=== PATIENT | female | born 1955 | race Caucasian/White ===

== ENCOUNTER 2023-11-08 08:44 | Inpatient (IN) | payer MEDICARE, MEDICAID ==
[~2023-11-08] VITALS: Ht 167.6 cm; Wt 32.6 kg
[2023-11-08 10:05] LABS: Basophils # (auto) 0 10 ^3/uL (0-0.2); Basophils % (auto) 0.2 % (0.0-2.0); Eosinophils # (auto) 0.1 10 ^3/uL (0-0.8); Eosinophils % (auto) 0.3 % (0.0-7.0); Hemoglobin 14.4 g/dL (12.2-16.2); Lymphocytes # (auto) 1.4 10 ^3/uL (0.4-5.4); Lymphocytes % (auto) 8.5 % (10.0-50.0); Mean Corpuscular Hemoglobin 31.4 pg (28.0-32.0); Mean Corpuscular Hgb Conc. 32.8 g/dL (32.0-36.0); Mean Corpuscular Volume 95.8 fL (80.0-100.0); Monocytes # (auto) 1.3 10 ^3/uL (0-1.3); Monocytes % (auto) 8.2 % (0.0-12.0); Neutrophils # (auto) 13.3 10 ^3/uL (1.6-8.6); Neutrophils % (auto) 82.8 % (37.0-80.0); Red Blood Cells 4.59 10^6/uL (4.0-5.20); Red Cell Distribution Width 15.6 % (11.8-14.3); White Blood Cell 16.1 10^3/uL (4.4-10.8)
[2023-11-08 10:19] LABS: Alanine Aminotransferase 35 U/L (7-40); Albumin 4.2 g/dL (3.2-4.8); Alkaline Phosphatase 78 U/L (46-116); Anion Gap 8 (5-15); Aspartate Aminotransferase 31 U/L (13-40); BUN/Creatinine Ratio 17.6 (10.0-20.0); Blood Urea Nitrogen 13 mg/dL (9-23); Calcium 10.2 mg/dL (8.5-10.1); Carbon Dioxide 26 mmol/L (20-30); Chloride 104 mmol/L (98-107); Glucose 132 mg/dL (74-106); Potassium 3.7 mmol/L (3.5-5.1); Sodium 138 mmol/L (136-145)
[2023-11-08 10:20] LABS: Bilirubin, Total 2.7 mg/dL (0.2-1.0); Total Protein 6.8 g/dL (5.7-8.2)
[2023-11-08] MEDS: PIPERACILLIN-TAZO 4.5GM 100 ML IV ONE (10:45)
[2023-11-08 10:52] LABS: Free T3 2.62 pg/mL (2.3-4.2)
[2023-11-08 10:56] LABS: Free T4 (Free Thyroxine) 1.89 ng/dL (0.89-1.76)
[2023-11-08] MEDS ORDERED: TORS20TA19 PO (11:34)
[2023-11-08] MEDS ORDERED: ALBU108A5 INH (11:34)
[2023-11-08] MEDS ORDERED: BACL10TA PO (11:34)
[2023-11-08] MEDS ORDERED: PARO10TA93 PO (11:34)
[2023-11-08] MEDS ORDERED: HYDR-4069 PO (11:34)
[2023-11-08] MEDS ORDERED: BENA40TA70 PO (11:34)
[2023-11-08] MEDS ORDERED: MAGN241.4 PO (11:34)
[2023-11-08] MEDS ORDERED: OMEP1CAP70 PO (11:34)
[2023-11-08] MEDS ORDERED: ASPI-325 PO (11:34)
[2023-11-08] MEDS ORDERED: GABA-1251 PO (11:34)
[2023-11-08] MEDS ORDERED: ALBU0.084 NEB (11:34)
[2023-11-08] MEDS ORDERED: PROM25TA10 PO (11:34)
[2023-11-08] MEDS ORDERED: APIX5TAB PO (11:34)
[2023-11-08] MEDS ORDERED: LEVO150T10 PO (11:34)
[2023-11-08] MEDS ORDERED: LACT10SO3 PO (11:34)
[2023-11-08 11:42] VITALS: PULSE 108; RESP 18; O2SAT 97
[2023-11-08 11:56] LABS: Triglycerides 70 mg/dL (< 150)
[2023-11-08 11:57] LABS: LDL Cholesterol 82 mg/dL (< 100)
[2023-11-08 11:58] LABS: Cholesterol 150 mg/dL (< 200); HDL Cholesterol 51 mg/dL (40-59)
[2023-11-08] MEDS: VANCOMYCIN 1GM/200ML 200 ML IV ONE (12:07)
[2023-11-08] MEDS: LACTULOSE 20Gm/30ML SOLN PO ONE (12:07)
[2023-11-08] MEDS: SODIUM CHLORIDE 0.9% 1,000 ML IV ONE (12:08)
[2023-11-08] MEDS: SODIUM CHLORIDE 0.9% 1,000 ML IV SCH (12:09)
[2023-11-08 12:12] LABS: Urine Bacteria NONE SEEN /hpf (None Seen); Urine Blood TRACE /uL (Negative); Urine Clarity Clear (Clear); Urine Color Yellow (Yellow); Urine Protein, UAD Negative (Negative); Urine Specific Gravity 1.016 (1.001-1.035); Urine Urobilinogen Normal (Negative); Urine WBC 1 /hpf (0 - 5); Urine pH 5.5 (5.0-8.0)
[2023-11-08] MEDS ORDERED: LEVOTHYROXINE SODIUM 50 MCG TAB PO SCH (13:00)
[2023-11-08 13:30] LABS: Basophils # (auto) 0 10 ^3/uL (0-0.2); Basophils % (auto) 0.1 % (0.0-2.0); Eosinophils # (auto) 0.1 10 ^3/uL (0-0.8); Eosinophils % (auto) 0.7 % (0.0-7.0); Hematocrit 41.5 % (36.0-46.0); Hemoglobin 13.6 g/dL (12.2-16.2); Lymphocytes # (auto) 1.6 10 ^3/uL (0.4-5.4); Lymphocytes % (auto) 10.7 % (10.0-50.0); Mean Corpuscular Hemoglobin 31.5 pg (28.0-32.0); Mean Corpuscular Hgb Conc. 32.9 g/dL (32.0-36.0); Mean Corpuscular Volume 95.7 fL (80.0-100.0); Monocytes # (auto) 1.3 10 ^3/uL (0-1.3); Neutrophils # (auto) 11.6 10 ^3/uL (1.6-8.6); Neutrophils % (auto) 79.5 % (37.0-80.0); Nucleated Red Blood Cells % 0.1 %; Red Blood Cells 4.34 10^6/uL (4.0-5.20); Red Cell Distribution Width 15.2 % (11.8-14.3); White Blood Cell 14.6 10^3/uL (4.4-10.8)
[2023-11-08 13:35] VITALS: O2SAT 94
[2023-11-08] MEDS ORDERED: ALBUTEROL SULF 2.5 MG/0.5ML(0.5%) NEB SOLN NEB PRN (13:45)
[2023-11-08 13:50] VITALS: BP 136/82; PULSE 79; RESP 16; O2SAT 94
[2023-11-08] MEDS: GABAPENTIN 400 MG CAP PO SCH (14:00)
[2023-11-08] MEDS: ACETAMINOPHEN 325 MG TAB PO PRN (14:32)
[2023-11-08] MEDS ORDERED: VANCOMYCIN PER PHARMACY 0 MG IV SCH (16:30)
[2023-11-08] MEDS: PIPERACILLIN-TAZOB 3.375GM 100 ML IV SCH (18:00)
[2023-11-08 19:45] VITALS: PULSE 99; RESP 17; O2SAT 94
[2023-11-08] MEDS: APIXABAN 5 MG TAB PO SCH (22:27)
[2023-11-08] MEDS: BACLOFEN 10 MG TAB PO SCH (22:27)
[2023-11-09] VITALS (12 sets, daily range): BP systolic 122–171; BP diastolic 53–77; PULSE 61–98; RESP 17–20; TEMP 98–98.7; O2SAT 91–98
[2023-11-09] MEDS: HYDROcodone-ACET 5/325MG TAB PO PRN (00:01)
[2023-11-09] MEDS: LACTULOSE 20Gm/30ML SOLN PO PRN (00:01)
[2023-11-09] MEDS: VANCOMYCIN 1GM/200ML 200 ML IV SCH (04:00)
[2023-11-09 05:21] LABS: Basophils # (auto) 0 10 ^3/uL (0-0.2); Basophils % (auto) 0.4 % (0.0-2.0); Eosinophils # (auto) 0.5 10 ^3/uL (0-0.8); Eosinophils % (auto) 4.8 % (0.0-7.0); Hemoglobin 13.6 g/dL (12.2-16.2); Lymphocytes # (auto) 1.7 10 ^3/uL (0.4-5.4); Lymphocytes % (auto) 16.5 % (10.0-50.0); Mean Corpuscular Hemoglobin 31.7 pg (28.0-32.0); Mean Corpuscular Volume 95.9 fL (80.0-100.0); Monocytes # (auto) 0.9 10 ^3/uL (0-1.3); Monocytes % (auto) 8.3 % (0.0-12.0); Neutrophils # (auto) 7.4 10 ^3/uL (1.6-8.6); Red Blood Cells 4.28 10^6/uL (4.0-5.20); Red Cell Distribution Width 15.5 % (11.8-14.3); White Blood Cell 10.6 10^3/uL (4.4-10.8)
[2023-11-09 05:50] LABS: Alanine Aminotransferase 32 U/L (7-40); Albumin 3.6 g/dL (3.2-4.8); Alkaline Phosphatase 73 U/L (46-116); Anion Gap 7 (5-15); Aspartate Aminotransferase 45 U/L (13-40); BUN/Creatinine Ratio 11.1 (10.0-20.0); Bilirubin, Total 1.6 mg/dL (0.2-1.0); Blood Urea Nitrogen 8 mg/dL (9-23); Calcium 9.4 mg/dL (8.5-10.1); Carbon Dioxide 25 mmol/L (20-30); Chloride 107 mmol/L (98-107); Glucose 92 mg/dL (74-106); Potassium 3.8 mmol/L (3.5-5.1); Sodium 139 mmol/L (136-145); Total Protein 6.3 g/dL (5.7-8.2)
[2023-11-09] MEDS: LEVOTHYROXINE SODIUM 25 MCG TAB PO SCH (06:40)
[2023-11-09] MEDS: LEVOTHYROXINE SODIUM 112 MCG TAB PO SCH (06:40)
[2023-11-09] MEDS: FLEET ENEMA(ADULT) 135 ML PR ONE (08:15)
[2023-11-09] MEDS ORDERED: VANCOMYCIN 1GM/200ML 200 ML IV SCH (09:45)
[2023-11-09] MEDS ORDERED: PATIENTS OWN MEDICATION (Paroxetine Hydrochloride 1 TAB) PO SCH (10:00)
[2023-11-09] MEDS ORDERED: PATIENTS OWN MEDICATION (Magnesium Oxide (Mag-Ox) 1 TAB) PO SCH (10:00)
[2023-11-09] MEDS ORDERED: ENOXAPARIN SOD 40 MG/0.4 ML SYRINGE SC SCH (10:00)
[2023-11-09] MEDS ORDERED: LEVOTHYROXINE SODIUM 50 MCG TAB PO SCH (10:00)
[2023-11-09] MEDS ORDERED: PATIENTS OWN MEDICATION (Levothyroxine Sodium 1 TAB) PO SCH (10:00)
[2023-11-09] MEDS ORDERED: PATIENTS OWN MEDICATION (Benazepril Hcl 1 TAB) PO SCH (10:00)
[2023-11-09] MEDS ORDERED: OMEPRAZOLE 40MG/20ML ORAL SUSP PO SCH (10:00)
[2023-11-09] MEDS ORDERED: PRE1T PO (10:20)
[2023-11-09] MEDS: PARoxetine 20 MG TAB PO SCH (10:22)
[2023-11-09] MEDS: MAGNESIUM OXIDE 400 MG TAB PO SCH (10:23)
[2023-11-09] MEDS: ASPirin-EC 81 mg tab PO SCH (10:23)
[2023-11-09] MEDS: POLYETHYLENE GLYCOL 17 GM PWDR PO SCH (10:24)
[2023-11-09] MEDS: BENAZEPRIL HCL 10 MG TAB PO SCH (10:24)
[2023-11-09] MEDS: PANTOPRAZOLE 40 MG TAB PO SCH (10:29)
[2023-11-09] MEDS ORDERED: IPRAAER6 INH (15:02)
[2023-11-09] MEDS ORDERED: PRED20TA2 PO (15:02)
[2023-11-09] MEDS: POLYETHYLENE GLYCOL 17 GM PWDR PO ONE (15:40)
[2023-11-09] MEDS: METOCLOPRAMIDE HCL 5MG/ml INJ 2ml VIAL IV SCH (15:40)
[2023-11-09] MEDS: FLEET MINERAL OIL ENEMA 133 ML PR ONE (15:42)
[2023-11-09] MEDS: IPRATROPIUM BROM 0.5 MG/2.5ML INH SOL NEB SCH (18:41)
[2023-11-09] MEDS: ALBUTEROL SULF 2.5 MG/0.5ML(0.5%) NEB SOLN NEB SCH (18:41)
[2023-11-09] MEDS: LACTULOSE 20Gm/30ML SOLN PO SCH (18:57)
[2023-11-09] MEDS: APIXABAN 5 MG TAB PO SCH (21:41)
[2023-11-10] VITALS (12 sets, daily range): BP systolic 132–156; BP diastolic 68–85; PULSE 86–101; RESP 18–22; TEMP 97.9–98.4; O2SAT 93–97
[2023-11-10] MEDS: VANCOMYCIN 1GM/200ML 200 ML IV SCH (00:12)
[2023-11-10] MEDS: HYDROcodone-ACET 10/325MG TAB PO PRN (21:20)
[2023-11-11] VITALS (12 sets, daily range): BP systolic 121–147; BP diastolic 53–108; PULSE 83–100; RESP 18–21; TEMP 97.6–98.6; O2SAT 92–98
[2023-11-11 06:29] LABS: Chloride 108 mmol/L (98-107); Potassium 3.9 mmol/L (3.5-5.1); Sodium 140 mmol/L (136-145)
[2023-11-11 06:30] LABS: Anion Gap 4 (5-15); Carbon Dioxide 28 mmol/L (20-30)
[2023-11-11 06:31] LABS: Calcium 9.3 mg/dL (8.5-10.1)
[2023-11-11 06:35] LABS: Basophils # (auto) 0.1 10 ^3/uL (0-0.2); Basophils % (auto) 0.8 % (0.0-2.0); Eosinophils # (auto) 0.3 10 ^3/uL (0-0.8); Eosinophils % (auto) 3.3 % (0.0-7.0); Glucose 92 mg/dL (74-106); Hematocrit 39.4 % (36.0-46.0); Lymphocytes # (auto) 1.2 10 ^3/uL (0.4-5.4); Lymphocytes % (auto) 14.5 % (10.0-50.0); Mean Corpuscular Hemoglobin 31.7 pg (28.0-32.0); Mean Corpuscular Hgb Conc. 33.1 g/dL (32.0-36.0); Mean Corpuscular Volume 95.6 fL (80.0-100.0); Monocytes # (auto) 0.9 10 ^3/uL (0-1.3); Monocytes % (auto) 10.8 % (0.0-12.0); Neutrophils # (auto) 5.6 10 ^3/uL (1.6-8.6); Neutrophils % (auto) 70.6 % (37.0-80.0); Nucleated Red Blood Cells % 0.1 %; Red Blood Cells 4.12 10^6/uL (4.0-5.20); Red Cell Distribution Width 15.2 % (11.8-14.3)
[2023-11-11 06:45] LABS: BUN/Creatinine Ratio 9.6 (10.0-20.0); Blood Urea Nitrogen < 5 mg/dL (9-23)
[2023-11-11] MEDS: VANCOMYCIN 1GM/200ML 200 ML IV SCH (22:29)
[2023-11-12] VITALS (8 sets, daily range): BP systolic 118–143; BP diastolic 45–68; PULSE 80–96; RESP 18–20; TEMP 97.7–98.6; O2SAT 94–100
[2023-11-12 05:36] LABS: Basophils # (auto) 0 10 ^3/uL (0-0.2); Basophils % (auto) 0.7 % (0.0-2.0); Eosinophils # (auto) 0.2 10 ^3/uL (0-0.8); Eosinophils % (auto) 3.4 % (0.0-7.0); Hematocrit 37.5 % (36.0-46.0); Hemoglobin 12.3 g/dL (12.2-16.2); Lymphocytes # (auto) 1.2 10 ^3/uL (0.4-5.4); Lymphocytes % (auto) 16.8 % (10.0-50.0); Mean Corpuscular Hemoglobin 31.2 pg (28.0-32.0); Mean Corpuscular Hgb Conc. 32.7 g/dL (32.0-36.0); Mean Corpuscular Volume 95.5 fL (80.0-100.0); Monocytes # (auto) 0.7 10 ^3/uL (0-1.3); Monocytes % (auto) 9.7 % (0.0-12.0); Neutrophils % (auto) 69.4 % (37.0-80.0); Nucleated Red Blood Cells % 0.1 %; Red Blood Cells 3.92 10^6/uL (4.0-5.20); Red Cell Distribution Width 15.3 % (11.8-14.3); White Blood Cell 7.2 10^3/uL (4.4-10.8)
[2023-11-12 06:00] LABS: Alanine Aminotransferase 104 U/L (7-40); Albumin 3.3 g/dL (3.2-4.8); Alkaline Phosphatase 133 U/L (46-116); Anion Gap 4 (5-15); Aspartate Aminotransferase 126 U/L (13-40); BUN/Creatinine Ratio 10.9 (10.0-20.0); Blood Urea Nitrogen 6 mg/dL (9-23); Calcium 9.2 mg/dL (8.5-10.1); Carbon Dioxide 30 mmol/L (20-30); Chloride 107 mmol/L (98-107); Glucose 96 mg/dL (74-106); Potassium 3.9 mmol/L (3.5-5.1); Sodium 141 mmol/L (136-145); Total Protein 5.5 g/dL (5.7-8.2)
[2023-11-12 06:08] LABS: CRP High Sensitivity 3.86 mg/dL (<1.0)
[2023-11-12] MEDS: DOXYCYCLINE 100 MG TAB/CAP PO SCH (21:15)
[2023-11-13] VITALS (11 sets, daily range): BP systolic 111–148; BP diastolic 49–85; PULSE 83–100; RESP 18–19; TEMP 97.9–98.7; O2SAT 94–98
[2023-11-13] MEDS: LIDOCAINE HCL 5 % TOP OINT 35 GM TOP PRN (00:39)
[2023-11-14] VITALS (8 sets, daily range): BP systolic 103–158; BP diastolic 32–72; PULSE 73–106; RESP 15–19; TEMP 97.7–98; O2SAT 94–98
[2023-11-14] MEDS ORDERED: LID35TP TOP (15:36)
[2023-11-15] VITALS (9 sets, daily range): BP systolic 107–139; BP diastolic 48–92; PULSE 79–112; RESP 18–20; TEMP 97.6–98.9; O2SAT 93–97
[2023-11-15] MEDS: POLYETHYLENE GLYCOL 17 GM PWDR PO PRN (15:45)
[2023-11-16] VITALS (8 sets, daily range): BP systolic 115–151; BP diastolic 50–94; PULSE 78–109; RESP 17–19; TEMP 97.8–98.1; O2SAT 90–97
[2023-11-16] MEDS ORDERED: MIDAZOLAM HCL 5 MG/ML-1ML VIAL ONE (14:13)
[2023-11-16] MEDS ORDERED: SODIUM CHLORIDE LOCK 10 ML ONE (14:13)
[2023-11-16] MEDS ORDERED: fentaNYL CITRATE 100 MCG/2 ML VL ONE ×2 (14:13→15:51)
[2023-11-16] MEDS ORDERED: diphenhdrAMINE HCL 50 MG/1 ML VL ONE (14:13)
[2023-11-16] MEDS ORDERED: MIDAZOLAM HCL 2MG/2ML 2ml VIAL (1mg/ml) ONE (15:51)
[2023-11-16] MEDS ORDERED: ONDANSETRON HCL 4 MG/2 ML VIAL IV PRN (16:00)
[2023-11-16] MEDS ORDERED: LABETALOL HCL 5 MG/ML 4ML SYRINGE IV PRN (16:00)
[2023-11-16] MEDS ORDERED: ePHEDrine SULFATE 50 MG/ML AMP IV PRN (16:00)
[2023-11-16] MEDS ORDERED: MIDAZOLAM HCL 2MG/2ML 2ml VIAL (1mg/ml) IV PRN (16:00)
[2023-11-16] MEDS ORDERED: MORPHINE SULFATE 4 MG/ML SYR/VIAL IV PRN (16:00)
[2023-11-16] MEDS ORDERED: PROPOFOL 10 MG/ML 20 ML IV ONE (16:14)
[2023-11-16] MEDS ORDERED: DexAMETHasone SOD PHOS 10MG/1ML VIAL INJ ONE (16:14)
[2023-11-17 05:00] VITALS: BP 142/70; PULSE 70; RESP 19; TEMP 97.6; O2SAT 94
[2023-11-17 05:02] LABS: Basophils # (auto) 0 10 ^3/uL (0-0.2); Basophils % (auto) 0.2 % (0.0-2.0); Eosinophils # (auto) 0 10 ^3/uL (0-0.8); Hematocrit 38.3 % (36.0-46.0); Hemoglobin 12.7 g/dL (12.2-16.2); Lymphocytes # (auto) 0.8 10 ^3/uL (0.4-5.4); Lymphocytes % (auto) 17.9 % (10.0-50.0); Mean Corpuscular Hemoglobin 31.4 pg (28.0-32.0); Mean Corpuscular Hgb Conc. 33.2 g/dL (32.0-36.0); Mean Corpuscular Volume 94.5 fL (80.0-100.0); Monocytes # (auto) 0.2 10 ^3/uL (0-1.3); Monocytes % (auto) 5.1 % (0.0-12.0); Neutrophils # (auto) 3.5 10 ^3/uL (1.6-8.6); Neutrophils % (auto) 76.8 % (37.0-80.0); Nucleated Red Blood Cells % 0.1 %; Red Blood Cells 4.05 10^6/uL (4.0-5.20); Red Cell Distribution Width 14.9 % (11.8-14.3); White Blood Cell 4.5 10^3/uL (4.4-10.8)
[2023-11-17 05:20] LABS: Alanine Aminotransferase 54 U/L (7-40); Albumin 3.6 g/dL (3.2-4.8); Alkaline Phosphatase 112 U/L (46-116); Anion Gap 4 (5-15); Aspartate Aminotransferase 41 U/L (13-40); BUN/Creatinine Ratio 13.3 (10.0-20.0); Bilirubin, Total 0.7 mg/dL (0.2-1.0); Blood Urea Nitrogen 8 mg/dL (9-23); Calcium 9.9 mg/dL (8.7-10.4); Carbon Dioxide 32 mmol/L (20-30); Chloride 105 mmol/L (98-107); Glucose 140 mg/dL (74-106); Potassium 4.5 mmol/L (3.5-5.1); Sodium 141 mmol/L (136-145)
[2023-11-17 08:00] VITALS: PULSE 98; RESP 18; O2SAT 95
[2023-11-17 09:00] VITALS: BP 138/71; PULSE 76; RESP 17; TEMP 98; O2SAT 94
[2023-11-17 12:41] VITALS: BP 148/74; PULSE 80; RESP 17; TEMP 98.1; O2SAT 99
== END 2023-11-17 19:00 | disposition home or self-care (01) | DRG 254 ==
LOC: ER 08:44 → EDBD 08:44 → OVERFLOW 11:32 → WEST WING 11-09 09:23
PROVIDERS: ADMIT Nurse Practitioner Family; ATTEND Nurse Practitioner Acute Care
PROC: 0DJD8ZZ Inspection of Lower Intestinal Tract, Via Natural or Artificial Opening Endoscopic (ICD-10-PCS; principal; 2023-11-16 16:00)
DX: K59.00 Constipation, unspecified (principal); J96.21 Acute and chronic respiratory failure with hypoxia; I11.0 Hypertensive heart disease with heart failure; R65.10 Systemic inflammatory response syndrome (SIRS) of non-infectious origin without acute organ dysfunction; I50.9 Heart failure, unspecified; Z99.81 Dependence on supplemental oxygen; E11.9 Type 2 diabetes mellitus without complications; E03.9 Hypothyroidism, unspecified; K64.9 Unspecified hemorrhoids; K43.9 Ventral hernia without obstruction or gangrene; K21.9 Gastro-esophageal reflux disease without esophagitis; J44.9 Chronic obstructive pulmonary disease, unspecified; E66.01 Morbid (severe) obesity due to excess calories; E83.52 Hypercalcemia; R33.9 Retention of urine, unspecified; Z68.1 Body mass index [BMI] 19.9 or less, adult; K62.89 Other specified diseases of anus and rectum; E78.00 Pure hypercholesterolemia, unspecified; I25.10 Atherosclerotic heart disease of native coronary artery without angina pectoris; K64.8 Other hemorrhoids; Z79.82 Long term (current) use of aspirin; Z79.899 Other long term (current) drug therapy; Z82.49 Family history of ischemic heart disease and other diseases of the circulatory system; Z83.3 Family history of diabetes mellitus; Z83.438 Family history of other disorder of lipoprotein metabolism and other lipidemia; Z86.711 Personal history of pulmonary embolism; Z79.01 Long term (current) use of anticoagulants; Z90.710 Acquired absence of both cervix and uterus
CPT/HCPCS: 36415; 71045; 74176; 76705; 80048; 80053; 80061; 80202; 81001; 82248; 82270; 82378; 82565; 82962; 83605; 83690; 84439; 84443; 84481; 84484; 85025; 86141; 87040; 87077; 93005; 94640; 96365; 96367; 97110; 97116; 97163; 97530; G0378; J1100; J2250; J2543; J2704

== ENCOUNTER 2023-11-22 00:09 | Emergency (ER) | payer MEDICARE, MEDICAID ==
[~2023-11-22] VITALS: Ht 167.6 cm; Wt 100.0 kg
[~2023-11-22 00:09] MED LIST: ALBU0.084 NEB; ALBU108A5 INH; APIX5TAB PO; ASPI-325 PO; BACL10TA PO; BENA40TA70 PO; GABA-1251 PO; HYDR-4069 PO; IPRAAER6 INH; LACT10SO3 PO; LEVO150T10 PO; LID35TP TOP; MAGN241.4 PO; OMEP1CAP70 PO; PARO10TA93 PO; PRED20TA2 PO; PROM25TA10 PO; TORS20TA19 PO
[2023-11-22 00:30] VITALS: BP 166/70; PULSE 93; RESP 20; O2SAT 93
== END 2023-11-22 02:53 | disposition home or self-care (01) ==
LOC: EDUNIT# 00:09 → ER 00:09 → EDBD 00:09 → ER 02:53
DX: R33.9 Retention of urine, unspecified (principal); I11.0 Hypertensive heart disease with heart failure; I50.9 Heart failure, unspecified; K21.9 Gastro-esophageal reflux disease without esophagitis; J44.9 Chronic obstructive pulmonary disease, unspecified; Z46.6 Encounter for fitting and adjustment of urinary device; Z90.49 Acquired absence of other specified parts of digestive tract; Z90.710 Acquired absence of both cervix and uterus
CPT/HCPCS: 51702

== ENCOUNTER 2023-11-25 11:51 | Emergency (ER) | payer MEDICARE, MEDICAID ==
[~2023-11-25] VITALS: Ht 167.6 cm; Wt 93.0 kg
[2023-11-25] MEDS ORDERED: BACDST PO (12:21)
[2023-11-25] MEDS: cefTRIAXone 1GM/50ML D5W 50 ML IV ONE (16:41)
[2023-11-25 17:00] VITALS: BP 139/57; PULSE 88; RESP 19; TEMP 98; O2SAT 100
[2023-11-25 17:29] LABS: Urine Bacteria MANY /hpf (None Seen); Urine Blood 3+ /uL (Negative); Urine Clarity CLOUDY (Clear); Urine Color Brown (Yellow); Urine Mucus FEW (None Seen); Urine Protein, UAD 2+ (Negative); Urine Urobilinogen Normal (Negative); Urine WBC 1256 /hpf (0 - 5); Urine WBC Clumps PRESENT /hpf (None Seen); Urine pH 5.5 (5.0-8.0)
== END 2023-11-25 17:02 | disposition home or self-care (01) ==
LOC: ER 11:51
DX: N39.0 Urinary tract infection, site not specified (principal); I11.0 Hypertensive heart disease with heart failure; I50.9 Heart failure, unspecified; K21.9 Gastro-esophageal reflux disease without esophagitis; J44.9 Chronic obstructive pulmonary disease, unspecified; Z90.710 Acquired absence of both cervix and uterus; Z90.49 Acquired absence of other specified parts of digestive tract; Z87.891 Personal history of nicotine dependence
CPT/HCPCS: 51702; 71045; 81001; 87086; 87088; 87186; 96374; 99284; J0696

== ENCOUNTER 2023-12-10 12:33 | Inpatient (IN) | payer MEDICARE, MEDICAID ==
[~2023-12-10] VITALS: Ht 167.6 cm; Wt 96.5 kg
[~2023-12-10 12:33] MED LIST changes: +BACDST PO
[2023-12-10 13:31] VITALS: PULSE 100; RESP 20; O2SAT 92
[2023-12-10 15:11] LABS: Urine Bacteria FEW /hpf (None Seen); Urine Blood 3+ /uL (Negative); Urine Clarity Clear (Clear); Urine Color PINK (Yellow); Urine Protein, UAD 1+ (Negative); Urine Specific Gravity 1.007 (1.001-1.035); Urine Urobilinogen Normal (Negative); Urine WBC 12 /hpf (0 - 5)
[2023-12-10] MEDS: HYDROcodone-ACET 5/325MG TAB PO ONE (15:11)
[2023-12-10 16:04] LABS: Basophils # (auto) 0 10 ^3/uL (0-0.2); Basophils % (auto) 0.8 % (0.0-2.0); Eosinophils # (auto) 0.1 10 ^3/uL (0-0.8); Eosinophils % (auto) 1.8 % (0.0-7.0); Hematocrit 36.5 % (36.0-46.0); Lymphocytes # (auto) 1.8 10 ^3/uL (0.4-5.4); Lymphocytes % (auto) 34.1 % (10.0-50.0); Mean Corpuscular Hemoglobin 30.8 pg (28.0-32.0); Mean Corpuscular Hgb Conc. 32.7 g/dL (32.0-36.0); Mean Corpuscular Volume 94.1 fL (80.0-100.0); Monocytes # (auto) 0.4 10 ^3/uL (0-1.3); Monocytes % (auto) 8.7 % (0.0-12.0); Neutrophils # (auto) 2.8 10 ^3/uL (1.6-8.6); Neutrophils % (auto) 54.6 % (37.0-80.0); Nucleated Red Blood Cells % 0.1 %; Red Blood Cells 3.88 10^6/uL (4.0-5.20); Red Cell Distribution Width 14.3 % (11.8-14.3); White Blood Cell 5.1 10^3/uL (4.4-10.8)
[2023-12-10 16:24] LABS: Alanine Aminotransferase 41 U/L (7-40); Alkaline Phosphatase 85 U/L (46-116); Anion Gap 3 (5-15); Aspartate Aminotransferase 42 U/L (13-40); BUN/Creatinine Ratio 10.4 (10.0-20.0); Bilirubin, Total 0.9 mg/dL (0.2-1.0); Blood Urea Nitrogen 8 mg/dL (9-23); Calcium 10.3 mg/dL (8.7-10.4); Carbon Dioxide 31 mmol/L (20-30); Chloride 108 mmol/L (98-107); Glucose 95 mg/dL (74-106); Sodium 142 mmol/L (136-145); Total Protein 6.2 g/dL (5.7-8.2)
[2023-12-10 16:29] LABS: INR 1.08 (0.9-1.15); Partial Thromboplastin Time 26.5 SEC (24.5-34.5); Prothrombin Time 11.3 sec (9.3-11.8)
[2023-12-10 19:30] VITALS: PULSE 95; RESP 16; O2SAT 95
[2023-12-10] MEDS: LORazepam 2MG/ML-1ML VIAL IV PRN (20:04)
[2023-12-10] MEDS: IOHEXOL 350 MG/ML 100ML IJ ONE (20:17)
[2023-12-10 20:46] VITALS: BP 128/61; PULSE 108; RESP 22; TEMP 98.5; O2SAT 96
[2023-12-10] MEDS: BACLOFEN 10 MG TAB PO SCH (22:00)
[2023-12-10 22:15] VITALS: BP 133/71; PULSE 71; PULSE 82; RESP 18; TEMP 36.9; O2SAT 94
[2023-12-10 22:18] VITALS: BP 158/74; PULSE 90; RESP 16; TEMP 98.3; O2SAT 94
[2023-12-10] MEDS: ATORVASTATIN 20 MG TAB PO SCH (22:46)
[2023-12-10] MEDS: GABAPENTIN 400 MG CAP PO SCH (22:46)
[2023-12-11] VITALS (9 sets, daily range): BP systolic 107–141; BP diastolic 49–67; PULSE 80–90; RESP 14–20; TEMP 97.1–98; O2SAT 93–98
[2023-12-11] MEDS: HYDROcodone-ACET 5/325MG TAB PO PRN (00:10)
[2023-12-11] MEDS: FUROSEMIDE 40 MG/4 ML VIAL IV SCH (06:00)
[2023-12-11] MEDS: LEVOTHYROXINE SODIUM 50 MCG TAB PO SCH (06:20)
[2023-12-11 07:03] LABS: Basophils # (auto) 0 10 ^3/uL (0-0.2); Basophils % (auto) 0.9 % (0.0-2.0); Eosinophils # (auto) 0.2 10 ^3/uL (0-0.8); Eosinophils % (auto) 4.3 % (0.0-7.0); Hematocrit 33.9 % (36.0-46.0); Hemoglobin 11.2 g/dL (12.2-16.2); Lymphocytes # (auto) 2.1 10 ^3/uL (0.4-5.4); Lymphocytes % (auto) 40.1 % (10.0-50.0); Mean Corpuscular Hemoglobin 30.9 pg (28.0-32.0); Mean Corpuscular Volume 93.8 fL (80.0-100.0); Monocytes # (auto) 0.5 10 ^3/uL (0-1.3); Monocytes % (auto) 10.4 % (0.0-12.0); Neutrophils # (auto) 2.3 10 ^3/uL (1.6-8.6); Neutrophils % (auto) 44.3 % (37.0-80.0); Nucleated Red Blood Cells % 0.2 %; Red Blood Cells 3.61 10^6/uL (4.0-5.20); Red Cell Distribution Width 14.2 % (11.8-14.3); White Blood Cell 5.2 10^3/uL (4.4-10.8)
[2023-12-11 07:20] LABS: Alanine Aminotransferase 39 U/L (7-40); Albumin 3.4 g/dL (3.2-4.8); Alkaline Phosphatase 86 U/L (46-116); Anion Gap 4 (5-15); Aspartate Aminotransferase 65 U/L (13-40); BUN/Creatinine Ratio 9.9 (10.0-20.0); Blood Urea Nitrogen 7 mg/dL (9-23); Calcium 9.5 mg/dL (8.5-10.1); Carbon Dioxide 30 mmol/L (20-30); Chloride 109 mmol/L (98-107); Cholesterol 122 mg/dL (< 200); Glucose 87 mg/dL (74-106); LDL Cholesterol 74 mg/dL (< 100); Potassium 3.7 mmol/L (3.5-5.1); Sodium 143 mmol/L (136-145); Triglycerides 58 mg/dL (< 150)
[2023-12-11 07:21] LABS: HDL Cholesterol 41 mg/dL (40-59); Total Protein 5.5 g/dL (5.7-8.2)
[2023-12-11] MEDS: BENAZEPRIL HCL 10 MG TAB PO SCH (09:06)
[2023-12-11] MEDS: EMPAGLIFLOZIN 10 MG TAB PO SCH (09:08)
[2023-12-11] MEDS: PANTOPRAZOLE 40 MG TAB PO SCH (09:10)
[2023-12-11] MEDS: PARoxetine 20 MG TAB PO SCH (09:12)
[2023-12-12] VITALS (10 sets, daily range): BP systolic 109–142; BP diastolic 48–77; PULSE 69–95; RESP 17–20; TEMP 97.9–98.9; O2SAT 92–97
[2023-12-12] MEDS ORDERED: TORS20TA20 PO (12:17)
[2023-12-12] MEDS ORDERED: HYDR-4798 PO (12:19)
[2023-12-12] MEDS: HYDROcodone-ACET 10/325MG TAB PO PRN (13:40)
[2023-12-12] MEDS: APIXABAN 5 MG TAB PO ONE (13:41)
[2023-12-12 14:20] LABS: Hematocrit 36.9 % (36.0-46.0); Hemoglobin 12.3 g/dL (12.2-16.2)
[2023-12-12] MEDS: PROMETHAZINE HCL 6.25 MG/5 ML ORAL SYRUP PO PRN (14:53)
[2023-12-12] MEDS: APIXABAN 5 MG TAB PO SCH (21:43)
[2023-12-12] MEDS: LOPERAMIDE HCL 2 MG CAP/TAB PO PRN (22:00)
[2023-12-13] VITALS (12 sets, daily range): BP systolic 113–132; BP diastolic 46–94; PULSE 76–99; RESP 16–20; TEMP 97.9–98.6; O2SAT 93–98
[2023-12-13] MEDS: IPRATROPIUM BROM 0.5 MG/2.5ML INH SOL NEB PRN (22:14)
[2023-12-13] MEDS: ALBUTEROL SULF 2.5 MG/0.5ML(0.5%) NEB SOLN NEB PRN (22:14)
[2023-12-14] VITALS (7 sets, daily range): BP systolic 122–139; BP diastolic 51–64; PULSE 85–101; RESP 18; TEMP 97.6–98.4; O2SAT 90–96
[2023-12-14] MEDS ORDERED: ATOR20TA PO (13:33)
[2023-12-14] MEDS ORDERED: FURO1TAB31 PO (13:33)
[2023-12-14] MEDS ORDERED: EMPA1TAB PO (13:33)
[2023-12-14] MEDS ORDERED: APIX5TAB PO (13:33)
[2023-12-14] MEDS ORDERED: DIPH2.5T73 PO (13:34)
[2023-12-14] MEDS ORDERED: CIPR-173 PO (13:35)
== END 2023-12-14 20:25 | disposition home or self-care (01) | DRG 197 ==
LOC: ER 12:33 → EDBD 12:33 → TELE 18:49 → TELE-WESTW 21:55
PROVIDERS: ADMIT Nurse Practitioner Family; ATTEND Family Medicine
DX: I82.432 Acute embolism and thrombosis of left popliteal vein (principal); J96.21 Acute and chronic respiratory failure with hypoxia; I50.33 Acute on chronic diastolic (congestive) heart failure; I11.0 Hypertensive heart disease with heart failure; Z99.81 Dependence on supplemental oxygen; J44.1 Chronic obstructive pulmonary disease with (acute) exacerbation; D64.9 Anemia, unspecified; N39.0 Urinary tract infection, site not specified; B96.20 Unspecified Escherichia coli [E. coli] as the cause of diseases classified elsewhere; R31.0 Gross hematuria; E03.9 Hypothyroidism, unspecified; K59.00 Constipation, unspecified; E83.52 Hypercalcemia; K64.9 Unspecified hemorrhoids; K43.9 Ventral hernia without obstruction or gangrene; E66.01 Morbid (severe) obesity due to excess calories; K21.9 Gastro-esophageal reflux disease without esophagitis; Z68.35 Body mass index [BMI] 35.0-35.9, adult; Z88.4 Allergy status to anesthetic agent; Z90.710 Acquired absence of both cervix and uterus; Z86.711 Personal history of pulmonary embolism; Z87.440 Personal history of urinary (tract) infections; Z87.891 Personal history of nicotine dependence; Z86.718 Personal history of other venous thrombosis and embolism; Z82.49 Family history of ischemic heart disease and other diseases of the circulatory system
CPT/HCPCS: 36415; 71046; 71275; 74176; 76775; 80053; 80061; 81001; 83880; 84443; 84484; 85014; 85018; 85025; 85379; 85610; 85730; 86850; 86900; 86901; 87045; 87081; 87086; 87088; 87186; 87427; 87493; 93306; 93971; G0378

== ENCOUNTER 2024-02-06 18:19 | Inpatient (IN) | payer MEDICARE, MEDICAID ==
[~2024-02-06] VITALS: Ht 162.6 cm; Wt 99.2 kg
[~2024-02-06 18:19] MED LIST changes: +ATOR20TA PO; -BACDST PO; -BACL10TA PO; -BENA40TA70 PO; +BENA40TA71 PO; +CIPR-173 PO; +DIPH2.5T73 PO; +EMPA1TAB PO; +FURO1TAB31 PO; -GABA-1251 PO; -HYDR-4069 PO; +HYDR-4798 PO; -LACT10SO3 PO; -LID35TP TOP; -PARO10TA93 PO; -TORS20TA19 PO; +TORS20TA20 PO
[2024-02-06 20:00] VITALS: PULSE 95
[2024-02-06 20:11] LABS: Basophils # (auto) 0 10 ^3/uL (0-0.2); Basophils % (auto) 0.3 % (0.0-2.0); Eosinophils # (auto) 0 10 ^3/uL (0-0.8); Hemoglobin 15.4 g/dL (12.2-16.2); Lymphocytes # (auto) 0.7 10 ^3/uL (0.4-5.4); Lymphocytes % (auto) 5.6 % (10.0-50.0); Mean Corpuscular Hemoglobin 29.9 pg (28.0-32.0); Mean Corpuscular Hgb Conc. 33.4 g/dL (32.0-36.0); Mean Corpuscular Volume 89.4 fL (80.0-100.0); Monocytes # (auto) 0.3 10 ^3/uL (0-1.3); Monocytes % (auto) 2.4 % (0.0-12.0); Neutrophils # (auto) 12.2 10 ^3/uL (1.6-8.6); Neutrophils % (auto) 91.7 % (37.0-80.0); Nucleated Red Blood Cells % 0.1 %; Red Blood Cells 5.15 10^6/uL (4.0-5.20); Red Cell Distribution Width 13.5 % (11.8-14.3); White Blood Cell 13.3 10^3/uL (4.4-10.8)
[2024-02-06 20:25] LABS: Alanine Aminotransferase 31 U/L (7-40); Albumin 4.5 g/dL (3.2-4.8); Alkaline Phosphatase 121 U/L (46-116); Anion Gap 10 (5-15); Aspartate Aminotransferase 27 U/L (13-40); BUN/Creatinine Ratio 15.3 (10.0-20.0); Bilirubin, Total 0.7 mg/dL (0.2-1.0); Blood Urea Nitrogen 11 mg/dL (9-23); Calcium 10.7 mg/dL (8.7-10.4); Carbon Dioxide 25 mmol/L (20-30); Chloride 104 mmol/L (98-107); Glucose 179 mg/dL (74-106); Lipase 36 U/L (12-53); Potassium 3.9 mmol/L (3.5-5.1); Sodium 139 mmol/L (136-145); Total Protein 7.7 g/dL (5.7-8.2)
[2024-02-06 20:26] LABS: INR 1.03 (0.9-1.15); Partial Thromboplastin Time 25.6 SEC (24.5-34.5); Prothrombin Time 10.9 sec (9.3-11.8)
[2024-02-06] MEDS ORDERED: DEXTROSE (50%) 50ML SYRG IV PRN (22:45)
[2024-02-06] MEDS ORDERED: NITROGLYCERIN 0.4 MG SL TAB SL PRN (22:45)
[2024-02-06] MEDS ORDERED: MORPHINE SULFATE INJ 2 MG/ml SYRG IV PRN (22:45)
[2024-02-06] MEDS ORDERED: DOCUSATE SOD 100 MG CAP PO PRN (22:45)
[2024-02-06] MEDS ORDERED: IPRATROPIUM BROM 0.5 MG/2.5ML INH SOL NEB PRN (23:15)
[2024-02-06] MEDS: MORPHINE SULFATE INJ 2 MG/ml SYRG IV ONE (23:18)
[2024-02-06] MEDS: METOCLOPRAMIDE HCL 5MG/ml INJ 2ml VIAL IV ONE (23:18)
[2024-02-06] MEDS: PIPERACILLIN-TAZOB 3.375GM 100 ML IV ONE (23:19)
[2024-02-06 23:21] VITALS: PULSE 142; RESP 20; O2SAT 97
[2024-02-06 23:25] VITALS: BP 194/105; PULSE 142; RESP 20; TEMP 98.1; O2SAT 97
[2024-02-07] VITALS (9 sets, daily range): BP systolic 126–138; BP diastolic 60–61; PULSE 75–111; RESP 16–20; TEMP 97.3–97.6; O2SAT 94–98
[2024-02-07] MEDS: SODIUM CHLORIDE 0.9% 1,000 ML IV SCH (01:18)
[2024-02-07] MEDS: ACCU-CHEK COMFORT CURVE STRIP VI SCH (01:30)
[2024-02-07] MEDS: hydrALAZINE HCL 20 MG/ML VL IV PRN (01:31)
[2024-02-07] MEDS: MORPHINE SULFATE INJ 2 MG/ml SYRG IV PRN ×2 (03:02→07:41)
[2024-02-07] MEDS: ONDANSETRON HCL 4 MG/2 ML VIAL IV PRN (03:02)
[2024-02-07] MEDS: dilTIAZem 25 MG/5 ML VIAL IV ONE (04:56)
[2024-02-07 04:59] LABS: Basophils # (auto) 0 10 ^3/uL (0-0.2); Basophils % (auto) 0.1 % (0.0-2.0); Eosinophils # (auto) 0 10 ^3/uL (0-0.8); Hemoglobin 15.2 g/dL (12.2-16.2); Lymphocytes # (auto) 1.1 10 ^3/uL (0.4-5.4); Lymphocytes % (auto) 7.2 % (10.0-50.0); Mean Corpuscular Hemoglobin 29.9 pg (28.0-32.0); Mean Corpuscular Volume 90.4 fL (80.0-100.0); Monocytes # (auto) 0.9 10 ^3/uL (0-1.3); Monocytes % (auto) 5.7 % (0.0-12.0); Neutrophils # (auto) 13.8 10 ^3/uL (1.6-8.6); Nucleated Red Blood Cells % 0.1 %; Red Blood Cells 5.08 10^6/uL (4.0-5.20); White Blood Cell 15.8 10^3/uL (4.4-10.8)
[2024-02-07 05:17] LABS: Alanine Aminotransferase 29 U/L (7-40); Albumin 4.1 g/dL (3.2-4.8); Alkaline Phosphatase 107 U/L (46-116); Anion Gap 9 (5-15); Aspartate Aminotransferase 27 U/L (13-40); BUN/Creatinine Ratio 16.9 (10.0-20.0); Blood Urea Nitrogen 12 mg/dL (9-23); Calcium 10.3 mg/dL (8.7-10.4); Carbon Dioxide 25 mmol/L (20-30); Chloride 107 mmol/L (98-107); Glucose 141 mg/dL (74-106); Potassium 3.7 mmol/L (3.5-5.1); Sodium 141 mmol/L (136-145)
[2024-02-07 05:18] LABS: Bilirubin, Total 0.5 mg/dL (0.2-1.0); Total Protein 6.8 g/dL (5.7-8.2)
[2024-02-07] MEDS: PIPERACILLIN-TAZOB 3.375GM 100 ML IV SCH (06:00)
[2024-02-07] MEDS: metroNIDAZOLE 500MG/100ML 100 ML IV SCH ×2 (06:32→14:07)
[2024-02-07] MEDS ORDERED: ENOXAPARIN SOD 40 MG/0.4 ML SYRINGE SC SCH (10:00)
[2024-02-07] MEDS: SUCCINYLCHOLINE CHLORIDE 20 MG/ML 10ML VIAL IV ONE (10:46)
[2024-02-07] MEDS ORDERED: fentaNYL CITRATE 100 MCG/2 ML VL ONE (10:47)
[2024-02-07] MEDS: ceFAZolin 2 GM/D5W50ml 50 ML IV ONE (11:01)
[2024-02-07] MEDS ORDERED: MEPERIDINE HCL (50 MG/ML) 1 ML VIAL ONE (12:02)
[2024-02-07] MEDS: ceFAZolin 1GM VL ONE (12:26)
[2024-02-07] MEDS ORDERED: SUGAMMADEX 200mg/2ml Vial (100MG/ML) IV ONE (12:47)
[2024-02-07] MEDS: LIDOCAINE W/ EPINEPHRINE 1% 20ML VIAL ONE (12:47)
[2024-02-07] MEDS ORDERED: MEPERIDINE HCL (25 MG/ML) 1ML VIAL ONE (12:56)
[2024-02-07] MEDS: ONDANSETRON HCL 4 MG/2 ML VIAL IV ONE (13:15)
[2024-02-07] MEDS ORDERED: MEPERIDINE HCL (25 MG/ML) 1ML VIAL IV PRN (13:15)
[2024-02-07] MEDS ORDERED: HYDROmorphone HCL 2 MG/ML VL/or syr IV PRN (13:15)
[2024-02-07] MEDS: HYDROmorphone HCL 2 MG/ML VL/or syr ONE (13:25)
[2024-02-07] MEDS ORDERED: CEFEPIME 2GM/50ML NS 50 ML IV SCH (14:00)
[2024-02-07] MEDS: CEFEPIME 2GM/50ML NS 50 ML IV SCH (15:48)
[2024-02-07] MEDS: ENOXAPARIN SOD 40 MG/0.4 ML SYRINGE SC SCH (17:00)
[2024-02-07] MEDS: HYDROmorphone HCL 2 MG/ML VL/or syr IV PRN (19:03)
[2024-02-07] MEDS: ATORVASTATIN 20 MG TAB PO SCH (21:39)
[2024-02-08] VITALS (16 sets, daily range): BP systolic 123–147; BP diastolic 44–79; PULSE 92–112; RESP 14–24; TEMP 97–98; O2SAT 91–99
[2024-02-08 00:46] LABS: Urine Bacteria FEW /hpf (None Seen); Urine Blood Negative /uL (Negative); Urine Budding Yeast MODERATE /hpf (None Seen); Urine Clarity Turbid (Clear); Urine Color Yellow (Yellow); Urine Hyaline Cast FEW /lpf (0 - 2); Urine Mucus FEW (None Seen); Urine Protein, UAD TRACE (Negative); Urine Specific Gravity 1.026 (1.001-1.035); Urine Urobilinogen Normal (Negative); Urine WBC 27 /hpf (0 - 5)
[2024-02-08 05:37] LABS: Basophils # (auto) 0 10 ^3/uL (0-0.2); Basophils % (auto) 0.2 % (0.0-2.0); Eosinophils # (auto) 0 10 ^3/uL (0-0.8); Eosinophils % (auto) 0.2 % (0.0-7.0); Hematocrit 40.7 % (36.0-46.0); Hemoglobin 13.1 g/dL (12.2-16.2); Lymphocytes # (auto) 1.3 10 ^3/uL (0.4-5.4); Lymphocytes % (auto) 10.3 % (10.0-50.0); Mean Corpuscular Hemoglobin 29.6 pg (28.0-32.0); Mean Corpuscular Hgb Conc. 32.1 g/dL (32.0-36.0); Mean Corpuscular Volume 92.3 fL (80.0-100.0); Monocytes # (auto) 1.8 10 ^3/uL (0-1.3); Monocytes % (auto) 14.1 % (0.0-12.0); Neutrophils # (auto) 9.8 10 ^3/uL (1.6-8.6); Neutrophils % (auto) 75.2 % (37.0-80.0); Red Cell Distribution Width 14.2 % (11.8-14.3); White Blood Cell 13.1 10^3/uL (4.4-10.8)
[2024-02-08 05:47] LABS: Chloride 112 mmol/L (98-107); Sodium 147 mmol/L (136-145)
[2024-02-08 05:48] LABS: Anion Gap 7 (5-15); Calcium 9.7 mg/dL (8.5-10.1); Carbon Dioxide 28 mmol/L (20-30)
[2024-02-08 05:53] LABS: BUN/Creatinine Ratio 18.8 (10.0-20.0); Blood Urea Nitrogen 12 mg/dL (9-23); Glucose 121 mg/dL (74-106)
[2024-02-08] MEDS: LEVOTHYROXINE SODIUM 112 MCG TAB PO SCH (06:19)
[2024-02-08] MEDS: LEVOTHYROXINE SODIUM 25 MCG TAB PO SCH (06:19)
[2024-02-08] MEDS ORDERED: LEVOTHYROXINE SODIUM 25 MCG TAB PO SCH (07:00)
[2024-02-08] MEDS: HYDROcodone-ACET 10/325MG TAB PO PRN (09:47)
[2024-02-08] MEDS ORDERED: TORSEMIDE 20 MG TAB PO SCH (10:00)
[2024-02-08] MEDS: EMPAGLIFLOZIN 10 MG TAB PO SCH (10:35)
[2024-02-08] MEDS: FUROSEMIDE 20 MG TAB PO SCH (10:35)
[2024-02-08] MEDS: HYDROmorphone HCL 2 MG/ML VL/or syr IV PRN (11:27)
[2024-02-08] MEDS: IPRATROPIUM BROM 0.5 MG/2.5ML INH SOL NEB PRN (14:38)
[2024-02-08] MEDS: ALBUTEROL SULF 2.5 MG/0.5ML(0.5%) NEB SOLN NEB PRN (14:38)
[2024-02-08] MEDS: ONDANSETRON HCL 4 MG/2 ML VIAL IV PRN (14:40)
[2024-02-08] MEDS ORDERED: PRED10TA PO (14:48)
[2024-02-08] MEDS ORDERED: MAGN400T40 PO (14:53)
[2024-02-08] MEDS ORDERED: GABA-1308 PO (14:53)
[2024-02-08] MEDS ORDERED: LACT10SO3 PO (14:53)
[2024-02-09] VITALS (13 sets, daily range): BP systolic 129–155; BP diastolic 54–84; PULSE 88–112; RESP 18–20; TEMP 97.4–98.3; O2SAT 92–96
[2024-02-09 05:31] LABS: Basophils # (auto) 0 10 ^3/uL (0-0.2); Basophils % (auto) 0.3 % (0.0-2.0); Eosinophils # (auto) 0.4 10 ^3/uL (0-0.8); Eosinophils % (auto) 3.5 % (0.0-7.0); Hematocrit 36.4 % (36.0-46.0); Hemoglobin 12.2 g/dL (12.2-16.2); Lymphocytes # (auto) 1.8 10 ^3/uL (0.4-5.4); Mean Corpuscular Hemoglobin 30.3 pg (28.0-32.0); Mean Corpuscular Hgb Conc. 33.4 g/dL (32.0-36.0); Mean Corpuscular Volume 90.7 fL (80.0-100.0); Monocytes # (auto) 1.4 10 ^3/uL (0-1.3); Monocytes % (auto) 13.1 % (0.0-12.0); Neutrophils # (auto) 6.8 10 ^3/uL (1.6-8.6); Neutrophils % (auto) 66.1 % (37.0-80.0); Nucleated Red Blood Cells % 0.1 %; Red Blood Cells 4.02 10^6/uL (4.0-5.20); Red Cell Distribution Width 13.7 % (11.8-14.3); White Blood Cell 10.3 10^3/uL (4.4-10.8)
[2024-02-09 06:17] LABS: Alanine Aminotransferase 19 U/L (7-40); Albumin 3.4 g/dL (3.2-4.8); Alkaline Phosphatase 76 U/L (46-116); Anion Gap 6 (5-15); Aspartate Aminotransferase 20 U/L (13-40); BUN/Creatinine Ratio 19.6 (10.0-20.0); Bilirubin, Total 0.9 mg/dL (0.2-1.0); Blood Urea Nitrogen 11 mg/dL (9-23); Calcium 9.6 mg/dL (8.7-10.4); Carbon Dioxide 29 mmol/L (20-30); Chloride 103 mmol/L (98-107); Glucose 102 mg/dL (74-106); Potassium 3.4 mmol/L (3.5-5.1); Sodium 138 mmol/L (136-145); Total Protein 5.7 g/dL (5.7-8.2)
[2024-02-09] MEDS: HYDROcodone-ACET 10/325MG TAB PO PRN (11:28)
[2024-02-09] MEDS: Glucerna Carbsteady SHAKE Stawberry 8oz PO SCH (12:00)
[2024-02-09] MEDS: CEFEPIME 2GM/50ML NS 50 ML IV SCH (22:13)
[2024-02-10] VITALS (11 sets, daily range): BP systolic 109–147; BP diastolic 58–70; PULSE 87–111; RESP 18–20; TEMP 97.1–97.9; O2SAT 95–97
[2024-02-10 05:23] LABS: Basophils # (auto) 0 10 ^3/uL (0-0.2); Basophils % (auto) 0.4 % (0.0-2.0); Eosinophils # (auto) 0.6 10 ^3/uL (0-0.8); Eosinophils % (auto) 5.9 % (0.0-7.0); Hematocrit 40.7 % (36.0-46.0); Hemoglobin 13.2 g/dL (12.2-16.2); Lymphocytes # (auto) 2.4 10 ^3/uL (0.4-5.4); Mean Corpuscular Hemoglobin 29.6 pg (28.0-32.0); Mean Corpuscular Hgb Conc. 32.3 g/dL (32.0-36.0); Mean Corpuscular Volume 91.5 fL (80.0-100.0); Monocytes # (auto) 1.1 10 ^3/uL (0-1.3); Monocytes % (auto) 11.8 % (0.0-12.0); Neutrophils # (auto) 5.5 10 ^3/uL (1.6-8.6); Neutrophils % (auto) 56.9 % (37.0-80.0); Nucleated Red Blood Cells % 0.1 %; Red Blood Cells 4.45 10^6/uL (4.0-5.20); Red Cell Distribution Width 13.7 % (11.8-14.3); White Blood Cell 9.7 10^3/uL (4.4-10.8)
[2024-02-10 05:45] LABS: Alanine Aminotransferase 22 U/L (7-40); Albumin 3.3 g/dL (3.2-4.8); Alkaline Phosphatase 107 U/L (46-116); Anion Gap 3 (5-15); Aspartate Aminotransferase 30 U/L (13-40); BUN/Creatinine Ratio 14.8 (10.0-20.0); Bilirubin, Total 0.7 mg/dL (0.2-1.0); Blood Urea Nitrogen 8 mg/dL (9-23); Calcium 9.9 mg/dL (8.7-10.4); Carbon Dioxide 31 mmol/L (20-30); Chloride 104 mmol/L (98-107); Glucose 100 mg/dL (74-106); Potassium 4.1 mmol/L (3.5-5.1); Sodium 138 mmol/L (136-145)
[2024-02-10 05:46] LABS: Total Protein 5.7 g/dL (5.7-8.2)
[2024-02-10] MEDS: PANTOPRAZOLE 40 MG TAB PO SCH (10:50)
[2024-02-11] VITALS (11 sets, daily range): BP systolic 124–141; BP diastolic 60–72; PULSE 90–104; RESP 17–20; TEMP 97.4–97.8; O2SAT 95–98
[2024-02-11 05:46] LABS: Basophils # (auto) 0.1 10 ^3/uL (0-0.2); Basophils % (auto) 0.7 % (0.0-2.0); Eosinophils # (auto) 0.5 10 ^3/uL (0-0.8); Eosinophils % (auto) 6.1 % (0.0-7.0); Hematocrit 39.1 % (36.0-46.0); Hemoglobin 13.2 g/dL (12.2-16.2); Lymphocytes % (auto) 22.6 % (10.0-50.0); Mean Corpuscular Hemoglobin 30.6 pg (28.0-32.0); Mean Corpuscular Hgb Conc. 33.7 g/dL (32.0-36.0); Mean Corpuscular Volume 90.7 fL (80.0-100.0); Monocytes # (auto) 0.9 10 ^3/uL (0-1.3); Monocytes % (auto) 9.8 % (0.0-12.0); Neutrophils # (auto) 5.5 10 ^3/uL (1.6-8.6); Neutrophils % (auto) 60.8 % (37.0-80.0); Red Blood Cells 4.31 10^6/uL (4.0-5.20); Red Cell Distribution Width 13.4 % (11.8-14.3); White Blood Cell 9.1 10^3/uL (4.4-10.8)
[2024-02-11 06:07] LABS: Alanine Aminotransferase 11 U/L (7-40); Albumin 3.3 g/dL (3.2-4.8); Alkaline Phosphatase 95 U/L (46-116); Anion Gap 6 (5-15); Aspartate Aminotransferase 26 U/L (13-40); BUN/Creatinine Ratio 15.3 (10.0-20.0); Blood Urea Nitrogen 9 mg/dL (9-23); Calcium 9.7 mg/dL (8.5-10.1); Carbon Dioxide 30 mmol/L (20-30); Chloride 103 mmol/L (98-107); Glucose 95 mg/dL (74-106); Potassium 3.2 mmol/L (3.5-5.1); Sodium 139 mmol/L (136-145)
[2024-02-11 06:08] LABS: Bilirubin, Total 0.5 mg/dL (0.2-1.0); Total Protein 5.7 g/dL (5.7-8.2)
[2024-02-11] MEDS ORDERED: POTASSIUM EFFERVESENT TAB 25 MEQ PO ONE (10:00)
[2024-02-11] MEDS: POTASSIUM EFFERVESENT TAB 25 MEQ PO ONE (10:37)
[2024-02-11] MEDS ORDERED: ACETAMINOPHEN 325 MG TAB PO PRN (13:00)
[2024-02-11] MEDS: HYDROcodone-ACET 10/325MG TAB PO PRN (15:29)
[2024-02-11] MEDS: OMEPRAZOLE-SOD BICARB 20 MG POWDER PO ONE (22:52)
[2024-02-12] VITALS (9 sets, daily range): BP systolic 120–147; BP diastolic 68–83; PULSE 55–102; RESP 18–20; TEMP 97.5–97.8; O2SAT 94–98
[2024-02-12 06:21] LABS: Basophils # (auto) 0.1 10 ^3/uL (0-0.2); Basophils % (auto) 0.8 % (0.0-2.0); Eosinophils # (auto) 0.5 10 ^3/uL (0-0.8); Eosinophils % (auto) 4.7 % (0.0-7.0); Hematocrit 39.2 % (36.0-46.0); Hemoglobin 13.1 g/dL (12.2-16.2); Lymphocytes # (auto) 1.9 10 ^3/uL (0.4-5.4); Lymphocytes % (auto) 18.4 % (10.0-50.0); Mean Corpuscular Hemoglobin 29.9 pg (28.0-32.0); Mean Corpuscular Hgb Conc. 33.4 g/dL (32.0-36.0); Mean Corpuscular Volume 89.6 fL (80.0-100.0); Monocytes # (auto) 0.9 10 ^3/uL (0-1.3); Monocytes % (auto) 8.7 % (0.0-12.0); Neutrophils # (auto) 6.9 10 ^3/uL (1.6-8.6); Neutrophils % (auto) 67.4 % (37.0-80.0); Red Blood Cells 4.37 10^6/uL (4.0-5.20); Red Cell Distribution Width 13.3 % (11.8-14.3); White Blood Cell 10.3 10^3/uL (4.4-10.8)
[2024-02-12 06:33] LABS: Alanine Aminotransferase 25 U/L (7-40); Albumin 3.4 g/dL (3.2-4.8); Alkaline Phosphatase 124 U/L (46-116); Anion Gap 5 (5-15); Aspartate Aminotransferase 85 U/L (13-40); BUN/Creatinine Ratio 19.3 (10.0-20.0); Bilirubin, Total 0.6 mg/dL (0.2-1.0); Blood Urea Nitrogen 11 mg/dL (9-23); Carbon Dioxide 31 mmol/L (20-30); Chloride 103 mmol/L (98-107); Glucose 107 mg/dL (74-106); Potassium 3.4 mmol/L (3.5-5.1); Sodium 139 mmol/L (136-145); Total Protein 5.8 g/dL (5.7-8.2)
[2024-02-12] MEDS ORDERED: OMEPRAZOLE-SOD BICARB 20 MG POWDER PO SCH (10:00)
[2024-02-12] MEDS ORDERED: FLUC200T50 PO (10:04)
[2024-02-12] MEDS ORDERED: METR-344 PO (10:04)
[2024-02-12] MEDS ORDERED: ZOFR4T PO (10:04)
[2024-02-12] MEDS ORDERED: LEVO500T91 PO (10:04)
[2024-02-12] MEDS: POTASSIUM EFFERVESENT TAB 25 MEQ PO ONE (10:25)
[2024-02-12] MEDS: FLUCONAZOLE 100 MG TAB PO SCH (10:25)
== END 2024-02-12 18:42 | disposition home or self-care (01) | DRG 227 ==
LOC: ER 18:19 → EDUNIT# 18:19 → EDBD 18:19 → TELE 22:52 → TELE-EAST 02-07 15:35
PROVIDERS: ADMIT Nurse Practitioner Family; ATTEND Family Medicine
PROC: 0WUF0JZ Supplement Abdominal Wall with Synthetic Substitute, Open Approach (ICD-10-PCS; principal; 2024-02-07 11:24)
DX: K43.0 Incisional hernia with obstruction, without gangrene (principal); A41.9 Sepsis, unspecified organism; I50.32 Chronic diastolic (congestive) heart failure; I11.0 Hypertensive heart disease with heart failure; J44.1 Chronic obstructive pulmonary disease with (acute) exacerbation; E03.9 Hypothyroidism, unspecified; K21.9 Gastro-esophageal reflux disease without esophagitis; R32 Unspecified urinary incontinence; N30.00 Acute cystitis without hematuria; E66.01 Morbid (severe) obesity due to excess calories; I25.10 Atherosclerotic heart disease of native coronary artery without angina pectoris; K59.00 Constipation, unspecified; E78.00 Pure hypercholesterolemia, unspecified; F17.200 Nicotine dependence, unspecified, uncomplicated; Z86.711 Personal history of pulmonary embolism; Z79.84 Long term (current) use of oral hypoglycemic drugs; Z79.82 Long term (current) use of aspirin; Z79.01 Long term (current) use of anticoagulants; Z86.718 Personal history of other venous thrombosis and embolism; Z90.49 Acquired absence of other specified parts of digestive tract; Z90.710 Acquired absence of both cervix and uterus; Z83.3 Family history of diabetes mellitus; Z82.49 Family history of ischemic heart disease and other diseases of the circulatory system; Z68.37 Body mass index [BMI] 37.0-37.9, adult; Z79.899 Other long term (current) drug therapy
CPT/HCPCS: 36415; 71045; 74176; 80048; 80053; 81001; 82962; 83605; 83690; 84484; 85025; 85610; 85730; 87040; 87086; 87088; 94640; 97110; 97116; 97163; 97530; G0378; J0330; J0690; J0692; J2405; J2543; J3490